=== PATIENT | female | born 1980 | race Hispanic/Latino ===

== ENCOUNTER 2019-04-28 11:32 | Emergency (ER) | payer BC, OTHER ==
[~2019-04-28] VITALS: Ht 160 cm; Wt 107.0 kg
[2019-04-28] MEDS ORDERED: SODIUM CHLORIDE 0.9% 1000ML 1,000 ML IV SCH (12:00)
[2019-04-28] MEDS ORDERED: ONDANSETRON HCL INJ 2MG/ML 2ML 2 MG/ML VIAL ONE (12:07)
[2019-04-28] MEDS ORDERED: KETOROLAC TROMETHAMINE 30 MG/ML VIAL ONE (12:07)
[2019-04-28] MEDS ORDERED: SODIUM CHLORIDE 0.9% 1000ML 1,000 ML ONE (12:07)
[2019-04-28] MEDS ORDERED: CEFTRIAXONE SOD 1 GM/NS 50 ML 50 ML IV ONE ×2 (12:15→12:28)
[2019-04-28] MEDS ORDERED: KETOROLAC TROMETHAMINE 30 MG/ML VIAL IV ONE (12:30)
[2019-04-28] MEDS ORDERED: ONDANSETRON HCL INJ 2MG/ML 2ML 2 MG/ML VIAL IV ONE (12:30)
--- NOTE | 2019-04-28 13:12 | Diagnostic Imaging Report ---
EXAM: CT Abdomen and Pelvis WITHOUT contrast INDICATION: ^[id number] ^[id number] COMPARISON: None available. TECHNIQUE: Abdomen and pelvis were scanned utilizing a multidetector helical scanner from the lung base to the pubic symphysis without administration of IV contrast. Absence of intravenous contrast decreases sensitivity for detection of focal lesions and vascular pathology. Coronal and sagittal reformations were obtained. Routine protocol was performed. IV CONTRAST: None ORAL CONTRAST: None. COMPLICATIONS: None RADIATION DOSE: Total DLP: 1143.17 mGy*cm Estimated effective dose: (DLP x 0.015 x size factor) mSv CTDIvol has been reviewed. It is below the limits set by the Radiation Protocol Committee (RPC). FINDINGS: LINES and TUBES: None. LOWER THORAX: Unremarkable HEPATOBILIARY: Hepatomegaly. Otherwise, unenhanced liver is unremarkable. No biliary ductal dilation. GALLBLADDER: Multiple gallstones. Mild gallbladder wall thickening. SPLEEN: No splenomegaly. PANCREAS: No focal masses or ductal dilatation. ADRENALS: No adrenal nodules KIDNEYS/URETERS: No hydronephrosis. Exophytic left renal inferior pole lesion cannot be characterized on this unenhanced study. Punctate right midpole calculus. GI TRACT: No abnormal distention, wall thickening, or evidence of bowel obstruction. Appendix is normal. PELVIC ORGANS/BLADDER: Bilateral tubal ligation clips. Bladder is unremarkable. LYMPH NODES: No lymphadenopathy. VESSELS: Unremarkable. PERITONEUM / RETROPERITONEUM: No free air or fluid. BONES: L4 limbus vertebra. Degenerative changes of spine. SOFT TISSUES: Small fat-containing bilateral inguinal hernia. IMPRESSION: 1. Distended gallbladder, containing multiple gallstones with mild wall thickening. No significant surrounding inflammation or pericholecystic fluid. Cholecystitis cannot be excluded in the appropriate clinical context. 2. Hepatomegaly. 3. Left renal inferior pole partially exophytic lesion cannot be characterized on this unenhanced study. Nonurgent renal ultrasound can be obtained for further evaluation. Signed by: Dr. Lee Valentin MD on 04/28/2019 1:09 PM
--- NOTE | 2019-04-28 13:17 | NUR ---
Urine culture collected to be sent to hospital lab.
[2019-04-28] MEDS ORDERED: NAPROSYN500 MG PO (13:33)
[2019-04-28] MEDS ORDERED: ONDANSETRON ODT8 MG PO (13:33)
[2019-04-28] MEDS ORDERED: KEFLEX500 MG PO (13:33)
[2019-04-28] MEDS ORDERED: ULTRAM50 MG PO (13:33)
[2019-04-28 13:48] VITALS: BP 97/61
== END 2019-04-28 13:48 | disposition home or self-care (01) ==
LOC: FSED 11:32
DX: R30.0 Dysuria (principal); R31.9 Hematuria, unspecified; R11.0 Nausea; R10.30 Lower abdominal pain, unspecified; N10 Acute pyelonephritis; I10 Essential (primary) hypertension
CPT/HCPCS: 74176; 80053; 81003; 81025; 85025; 87086; 87186; 96374; 96375; 99283; J0696; J1885; J2405; J7030